=== PATIENT | female | born 1930 | race Caucasian/White ===

== ENCOUNTER 2018-06-24 14:11 | Emergency (ER) | payer OTHER ==
[~2018-06-24] VITALS: Ht 162.6 cm; Wt 64.4 kg
[2018-06-24] MEDS ORDERED: LOTENSIN20 MG PO (14:28)
[2018-06-24] MEDS ORDERED: NORVASC5 MG PO (14:28)
[2018-06-24] MEDS ORDERED: ZOCOR20 MG PO (14:28)
[2018-06-24] MEDS ORDERED: ARICEPT 5 MG TAB5 MG PO (14:29)
[2018-06-24] MEDS ORDERED: LEXAPRO20 MG PO (14:29)
[2018-06-24] MEDS ORDERED: VITAMIN D2000 UNIT PO (14:30)
[2018-06-24] MEDS ORDERED: PRESERVISION A1 EAC2 PO (14:30)
[2018-06-24] MEDS ORDERED: VITAMIN D1000 UNI1 PO (14:31)
[2018-06-24 14:32] LABS: URINE BILIRUBIN NEGATIVE (Negative); URINE BLOOD 2+ (Negative); URINE CLARITY CLEAR; URINE COLOR YELLOW; URINE GLUCOSE-RANDOM* NEGATIVE (Negative); URINE KETONES NEGATIVE (Negative); URINE LEUKOCYTES-REFLEX NEGATIVE (Negative); URINE NITRITE-REFLEX NEGATIVE (Negative); URINE PROTEIN (DIPSTICK) 1+ (Negative); URINE SPECIFIC GRAVITY <= 1.005 (1.005-1.035)
[2018-06-24 14:40] LABS: BACTERIA-REFLEX None Seen /HPF (None Seen); SQUAMOUS 0-3 Few /LPF (0-3); URINE RBC 0-2 Rare /HPF (0-2); URINE WBC-REFLEX 0-5 Rare /HPF (0-5)
[2018-06-24 14:41] LABS: CASTS None Seen /LPF (None Seen); CRYSTALS None Seen /LPF (None Seen)
[2018-06-24 16:01] LABS: ABSOLUTE NEUTROPHILS 3.5 thou/uL (1.4-8.2); BASOPHILS 0.8 % (0.0-2.0); EOSINOPHILS 0.3 % (0.0-3.0); HEMATOCRIT 40.2 % (37.0-47.0); HEMOGLOBIN 13.4 gm/dL (12.0-15.0); LYMPHOCYTES 33.6 % (24.0-44.0); MCH 29.6 pg (26.0-34.0); MCHC 33.3 g/dL (28.0-37.0); MCV 89.1 fL (80.0-100.0); MONOCYTES 7.8 % (1.0-8.0); PLATELET COUNT 217 thou/uL (150-400); POLYS 57.5 % (36.0-66.0); RBC 4.51 mil/uL (4.20-5.00); RDW 13.6 % (10.5-14.5); WBC 6.1 thou/uL (4.0-11.0)
[2018-06-24 16:20] LABS: CALCIUM 9.9 mg/dL (8.5-10.1)
[2018-06-24 16:25] LABS: ALBUMIN 4.2 g/dL (3.4-5.0); TOTAL BILIRUBIN 0.7 mg/dL (<0.1-1.0); TOTAL PROTEIN 7.4 g/dL (6.4-8.2)
[2018-06-24] MEDS ORDERED: ZANTAC 150MG T150 MG PO (17:43)
[2018-06-24 18:18] VITALS: BP 152/64
--- NOTE | 2018-06-25 13:34 | EKG ---
[address] [address] ELECTROCARDIOGRAM REPORT Name: LAWRENCE TRISTAN [facility] [id number] ������������������ Admission: 06/24/18 ������������������ Attend Phys: Discharge: 06/24/18 ������������������ Date of : [birth year] Report #: [id number] ����������������������������������������������������������������� [id number] THIS REPORT FOR: //name// [facility] ED Test Date: 2018-06-24 Test Time: 16:49:41 Pat Name: LAWRENCE TRISTAN Department: Room: Gender: F Collection Agent: chato : 1930 Requested By: Mimi Kumari Order Number: [id number] MD: Girish Benedict Measurements Intervals Gordon Rate: 63 P: 52 VA: 162 QRS: -9 QRSD: 94 T: 58 QT: 367 QTc: 376 Interpretive Statements Sinus rhythm Nonspecific T wave abnormality No previous ECG available for comparison Electronically Signed On 06-25-2018 13:34:06 CDT by Girish Benedict [email or web address] ��������������������������������������������� <ELECTRONICALLY SIGNED> ���������������������������������������� By: Girish Benedict MD, [facility] ��������������������������������������������� 06/25/18 1334 [id number] [id number] Girish Benedict MD, FACC /EPI
== END 2018-06-24 18:19 | disposition home or self-care (01) ==
LOC: ER 14:11
PROVIDERS: Nurse Practitioner Family
DX: R11.10 Vomiting, unspecified (principal); E87.6 Hypokalemia; I10 Essential (primary) hypertension; F03.90 Unspecified dementia, unspecified severity, without behavioral disturbance, psychotic disturbance, mood disturbance, and anxiety; E78.00 Pure hypercholesterolemia, unspecified; Z90.49 Acquired absence of other specified parts of digestive tract; Z87.891 Personal history of nicotine dependence; Z88.6 Allergy status to analgesic agent